=== PATIENT | male | born 1985 | race Caucasian/White ===

== ENCOUNTER 2016-11-12 17:11 | Emergency (ER) | payer SELFPAY ==
[~2016-11-12] VITALS: Ht 167.6 cm; Wt 71.2 kg
[~2016-11-12 17:11] MED LIST: BACL10TA PO; NO HOME MEDS
[2016-11-12 17:15] VITALS: Ht 167.6 cm; Wt 71.2 kg
--- OUTSIDE RECORDS SUMMARY | 2016-11-12 17:15 | XMS REPORT | Continuity of Care Document ---
Author Author [facility] Organization [facility] Address Unknown Phone Unavailable Care Team Providers Care Lab Animal Technician Name Role Phone PAVAN KELLY MD Primary Care Physician [phone] Insurance Providers Guarantor Yonatan Ordonez Address [address] [place] [address] Email [email or web address] Payer [facility] Community Plan Policy Number [id number] Subscriber's Name Yonatan Ordonez Relationship 18 Self Effective Date 16 Expiration Date 16 Advance Directives Directive Response Recorded Date/Time Advanced Directives Type None 03/27/16 2:06am Chief Complaint and Reason for Visit Chief Complaint Fall Reason for Visit [id number] Low back pain Problems Active Problems Medical Problem Onset Date Status Low back pain Unknown Acute Low back pain Unknown Acute Past Problems Medical Problem Onset Date Paraspinal muscle spasm Unknown Medications Current Home Medications Medication Dose Units Route Directions Days Qty Instructions Start Date Baclofen 10 Mg Tablet 10 Mg Oral Three Times A Day 30 Tablet No Home Meds 03/27/16 Past Home Medications Medication Directions Ordered Status Ciprofloxacin Hcl (Cipro) 500 Mg Tablet, 500 Mg Oral Twice A Day 02/02/12 Discontinued Hydrocodone Bit/Acetaminophen (Gordon 7.5/325 Tablet) 1 Tab Tablet, 1 - 2 Tab Oral As Needed 02/02/12 Discontinued Hydrocodone/Acetaminophen (Gordon 5-325 Tablet) 1 Each Tablet, 1 Tab Oral Every 4-6 Hours as needed for Pain 03/18/14 Discontinued Ibuprofen 200 Mg Tablet, 400 Mg Oral As Needed 03/17/09 Discontinued Ketorolac Tromethamine (Toradol) 10 Mg Tablet, 1 Tab Oral Q6h/0300,0900,1500, 2100 02/02/12 Discontinued Metronidazole (Flagyl) 500 Mg Powder, 500 Mg Miscell Twice A Day 02/02/12 Discontinued None , 02/09/09 Discontinued Social History Social History Problem Response Recorded Date/Time Onset Date Status Hx Substance Use No 03/27/2016 2:11am Not Applicable Not Applicable Hx Alcohol Use Yes 03/27/2016 2:11am Not Applicable Not Applicable Tobacco Usage smoke 03/25/2014 2:20am Not Applicable Not Applicable Query Response Start Date Stop Date Smoking Status Current every day smoker Hospital Discharge Instructions No hospital discharge instructions. Plan of Care Discharge Date 03/27/16 3:09am Disposition 01 DISCHARGED HOME, SELF-CARE Condition at Discharge Improved Instructions/Education Provided DI for Low Back Pain Prescriptions See Medication Section Referrals PAVAN KELLY MD Address: [address] [place] [address] GLORIA ORTIZ MD Address: [address] [place] [phone] Additional Instructions/Education Take Aleve 2 tablets twice daily for baseline pain control Baclofen 10 mg one tablet 3 times daily as needed for muscle pain/spasms Use warm packs or heat therapy to loosen the back muscles as well. Follow-up with Dr. Stafford at [facility] Care Plan and Goals Physician Care Plan Problem: Low back pain with paraspinal muscle spasms Goal: Follow up with primary care provider Instructions: Take medications and follow care plan as discussed/written Take Aleve 2 tablets twice daily for baseline pain control Baclofen 10 mg one tablet 3 times daily as needed for muscle pain/spasms Use warm packs or heat therapy to loosen the back muscles as well. Follow-up with Dr. Stafford at [facility] Functional Status No functional status results. Allergies, Adverse Reactions, Alerts Allergen Type Severity Reaction Status Last Updated Diazepam Allergy Severe ANAPHYLACTIC SHOCK Active 03/27/16 Immunizations Query Response on File Recorded Date/Time Hx Influenza Vaccination No 03/17/14 9:44pm Hx Pneumococcal Vaccination No 03/17/14 9:44pm Hx Tetanus, Diptheria, Pertussis Y 4-5 YRS, UNKNOWN 03/17/14 9:44pm Hx Influenza Vaccination No 03/17/14 9:44pm Hx Tetanus, Diptheria, Pertussis Y 4-5 YRS, UNKNOWN 03/17/14 9:44pm Tdap Vaccine Hx UNKNOWN,NO BROKEN SKIN 03/27/16 2:08am Vital Signs Acute Vital Signs Vital Response Date/Time Temperature (Fahrenheit) 98.4 deg F (96.8 - 99.1) 03/27/2016 3:09am Temperature (Calculated Celsius) 36.23923 degrees C (36.0 - 37.3) 03/27/2016 3:09am Pulse Rate (adult) 109 bpm (60 - 100) 03/27/2016 3:09am Respiratory Rate 19 breaths/min (10 - 20) 03/27/2016 3:09am O2 Sat by Pulse Oximetry 95 % (90 - 100) 03/27/2016 3:09am Blood Pressure 157/87 mm Hg 03/27/2016 3:09am Height (Feet) 5 feet 03/27/2016 2:06am Height (Inches) 5.00 inches 03/27/2016 2:06am Weight (Kilograms) 71.700 kg 03/27/2016 2:06am Body Mass Index (BMI) 26.0 03/27/2016 2:06am Results No known relevant diagnostic tests, laboratory data and/or discharge summary. Procedures No known history of procedures. Encounters Encounter Location Arrival/Admit Date Discharge/Depart Date Attending Provider Departed Emergency Room [facility] 03/27/16 1:56am 03/27/16 3: 09am PRAKASH LEONG MD Recent Diagnosis
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
--- OUTSIDE RECORDS SUMMARY | 2016-11-12 17:16 | XMS REPORT | Continuity of Care Document ---
Author Author [facility] Organization [facility] Address Unknown Phone Unavailable Support Name Relationship Address Phone TEO RHOADES DO Caregiver [facility] [address] [place] [phone] GLORIA ORTIZ MD Caregiver [address] [place] [address] LELA CHAND Next Of Kin [address] [place] [address] Unavailable Insurance Providers Payer Name Policy Number Subscriber Name Relationship Self Pay Yonatan Ordonez 18 Self Advance Directives Directive Response Recorded Date/Time Advanced Directives Type None 03/17/14 9:38pm Problems Medical Problems Problem Onset Date Status Low back pain Unknown Active Low back pain Unknown Active Medications Medication Dose Route Sig Days/Qty Instructions Order Date Discontinued Date Status [None] 02/09/09 01/30/12 Discontinued Ibuprofen 400 Mg PO NEEDED 03/17/09 01/30/12 Discontinued Hydrocodone Bit/Acetaminophen 1 - 2 Tab PO NEEDED 02/02/12 Discontinued Ketorolac Tromethamine 1 Tab PO Q6H/0300,0900,1500,2100 02/02/12 Discontinued Ciprofloxacin Hcl 500 Mg PO TWICE A DAY 02/02/12 08/01/12 Discontinued Metronidazole 500 Mg MC TWICE A DAY 02/02/12 08/01/12 Discontinued Hydrocodone/Acetaminophen 1 Tab PO EVERY 4-6 HOURS PRN PAIN 10 Qty 10/26 Active Social History Social History Problem Response Recorded Date/Time Smoking Status Current every day smoker 03/17/2014 9:44pm When did patient START smoking? 14 YEARS OLD 03/17/2014 9:44pm Hx Substance Use No 03/17/2014 9:44pm Hx Alcohol Use Yes 03/17/2014 9:44pm Query Response Start Date Stop Date Smoking Status Current every day smoker Hospital Discharge Instructions No hospital discharge instructions. Plan of Care No plan of care. Functional Status Query Response Date Recorded Physical Hygiene Self March 17, 2014 9:44pm Disabilities Visual March 17, 2014 9:44pm Devices Used Glasses March 17, 2014 9:44pm Dressing Self March 17, 2014 9:44pm Ambulation Self March 17, 2014 9:44pm Diet Self March 17, 2014 9:44pm Mental Status Alert Oriented March 17, 2014 9:44pm Disabilities Visual March 17, 2014 9:44pm Devices Used Glasses March 17, 2014 9:44pm Physical Hygiene Self March 17, 2014 9:44pm Dressing Self March 17, 2014 9:44pm Ambulation Self March 17, 2014 9:44pm Diet Self March 17, 2014 9:44pm Allergies, Adverse Reactions, Alerts Allergen Type Severity Reaction Status Last Updated Diazepam Allergy Severe ANAPHYLACTIC SHOCK Active 03/17/14 Immunizations Name Given Type Hx Influenza Vaccination No Historical Hx Pneumococcal Vaccination No Historical Hx Tetanus, Diptheria, Pertussis Y 4-5 YRS, UNKNOWN Historical Hx Influenza Vaccination No Historical Hx Tetanus, Diptheria, Pertussis Y 4-5 YRS, UNKNOWN Historical Vital Signs Acute Vital Signs Vital Response Date/Time Temperature (Fahrenheit) 98.6 deg F (96.8 - 99.1) Temperature (Calculated Celsius) 37.53408 degrees C (36.0 - 37.3) Pulse Rate (adult) 87 bpm (60 - 100) Respiratory Rate 16 breaths/min (10 - 20) O2 Sat by Pulse Oximetry 98 % (90 - 100) Blood Pressure 118/68 mm Hg Height 5 ft 5 in Weight 157 lb Body Mass Index 26.0 kg/m^2 Results Test Source Date Result Interp. Ref. Range Comments Alanine Aminotransferase (ALT/SGPT) March 17, 2014 10:32pm 34 U/L N 21-72 Albumin March 17, 2014 10:32pm 4.3 G/DL N 3.5-5.0 Albumin/Globulin Ratio March 17, 2014 10:32pm 1.5 RATIO N 1.1-2.2 Alcohol, Quantitative March 17, 2014 10:32pm 245 MG/DL - Alkaline Phosphatase March 17, 2014 10:32pm 85 U/L N 38-126 Amylase Level March 17, 2014 10:32pm 66 U/L N 30-110 Anion Gap March 17, 2014 10:32pm 14 MEQ/L N 5-15 Aspartate Amino Transf (AST/SGOT) March 17, 2014 10:32pm 26 U/L N 17 -59 BUN/Creatinine Ratio March 17, 2014 10:32pm 10 RATIO N 6-26 Band Neutrophils # September 11, 2012 5:30pm 0.1 T/MM3 - Band Neutrophils % September 11, 2012 5:30pm 1.0 % N 0-6 Basophils # (Auto) March 17, 2014 10:32pm 0.0 T/MM3 N 0-0.2 Basophils (%) (Auto) March 17, 2014 10:32pm 0.6 % N 0-2 Blood Urea Nitrogen March 17, 2014 10:32pm 9.0 MG/DL N 9-20 C-Reactive Protein January 30, 2012 11:20pm 13.5 MG/L H 0-9 COMMENT IN RECOVERY ROOM Calcium Level March 17, 2014 10:32pm 8.5 MG/DL N 8.4-10.2 Calculated Osmolality March 17, 2014 10:32pm 278 MOSM/KG N 261-280 Carbon Dioxide Level March 17, 2014 10:32pm 24 MEQ/L N 22-30 Chloride Level March 17, 2014 10:32pm 107 MEQ/L N 98-107 Conjugated Bilirubin September 11, 2012 5:30pm 0.00 MG/DL N 0.00-0.30 Creatinine March 17, 2014 10:32pm 0.9 MG/DL N 0.8-1.5 Eosinophils # (Auto) March 17, 2014 10:32pm 0.2 T/MM3 N 0-0.5 Eosinophils # (Manual) March 17, 2009 3:35pm 0.1 T/MM3 N 0-0.5 Eosinophils % (Manual) March 17, 2009 3:35pm 2.0 % N 0-4 Eosinophils (%) (Auto) March 17, 2014 10:32pm 2.7 % N 0-4 Erythrocyte Sedimentation Rate January 30, 2012 11:20pm 7 MM/HR N 0-15 COMMENT IN RECOVERY ROOM Gamma Glutamyl Transpeptidase December 02, 2007 5:15am 19 U/L N 15-73 Globulin March 17, 2014 10:32pm 2.8 G/DL N 2.4-3.6 Glucose Level March 17, 2014 10:32pm 97 MG/DL N 75-110 Hematocrit March 17, 2014 10:32pm 49.8 % N 41-53 Hemoglobin March 17, 2014 10:32pm 17.8 GM/DL H 13.5-17.5 Lipase March 17, 2014 10:32pm 178 U/L N 23-300 Lymphocytes # (Auto) March 17, 2014 10:32pm 3.1 T/MM3 N 1-4.8 Lymphocytes # (Manual) September 11, 2012 5:30pm 1.5 T/MM3 N 1-4.8 Lymphocytes % (Manual) September 11, 2012 5:30pm 23.0 % N 23-45 Lymphocytes (%) (Auto) March 17, 2014 10:32pm 43.2 % N 23-45 Mean Corpuscular Hemoglobin March 17, 2014 10:32pm 35.3 UUG H 26-34 Mean Corpuscular Hemoglobin Concent March 17, 2014 10:32pm 35.7 GM/DL N 31-37 Mean Corpuscular Volume March 17, 2014 10:32pm 98.8 UM3 N 80-100 Mean Platelet Volume March 17, 2014 10:32pm 9.1 UM3 L 9.4-12.4 Monocytes # (Auto) March 17, 2014 10:32pm 0.9 T/MM3 H 0-0.8 Monocytes # (Manual) September 11, 2012 5:30pm 0.8 T/MM3 N 0-0.8 Monocytes % (Manual) September 11, 2012 5:30pm 12.0 % H 0-9.0 Monocytes (%) (Auto) March 17, 2014 10:32pm 13.0 % H 0-9.0 Neutrophils # (Auto) March 17, 2014 10:32pm 2.9 T/MM3 N 1.8-7.7 Neutrophils # (Manual) September 11, 2012 5:30pm 4.0 T/MM3 N 1.8-7.7 Neutrophils % (Manual) September 11, 2012 5:30pm 61.0 % N 33-66 Neutrophils (%) (Auto) March 17, 2014 10:32pm 40.5 % N 33-66 Platelet Count March 17, 2014 10:32pm 230 T/MM3 N 130-400 Potassium Level March 17, 2014 10:32pm 4.0 MEQ/L N 3.6-5 RDW Standard Deviation March 17, 2014 10:32pm 44.6 FL N 36.9-50.2 Red Blood Count March 17, 2014 10:32pm 5.04 M/MM3 N 4.50-5.90 Sodium Level March 17, 2014 10:32pm 145 MEQ/L H 134-144 Tests Not Done March 17, 2009 3:55pm Not done - Has specimen been collected/obtained? Y Total Bilirubin March 17, 2014 10:32pm 0.80 MG/DL N 0.20-1.30 Total Protein March 17, 2014 10:32pm 7.1 G/DL N 6.3-8.2 Troponin I September 11, 2012 5:30pm < 0.012 ng/ml 0-0.12 Unconjugated Bilirubin September 11, 2012 5:30pm 0.70 MG/DL N 0.00-1.10 Urine Bilirubin March 17, 2014 10:42pm Negative - Has specimen been collected/obtained? Y Urine Blood March 17, 2014 10:42pm Negative - Has specimen been collected/obtained? Y Urine Collection Type March 17, 2014 10:42pm Voided-not cc-midstr - Has specimen been collected/obtained? Y Urine Color March 17, 2014 10:42pm Yellow - Has specimen been collected/obtained? Y Urine Glucose (UA) March 17, 2014 10:42pm Negative - Has specimen been collected/obtained? Y Urine Ketones March 17, 2014 10:42pm Negative - Has specimen been collected/obtained? Y Urine Leukocyte Esterase March 17, 2014 10:42pm Negative - Has specimen been collected/obtained? Y Urine Nitrite March 17, 2014 10:42pm Negative - Has specimen been collected/obtained? Y Urine Protein March 17, 2014 10:42pm Negative - Has specimen been collected/obtained? Y Urine RBC December 01, 2007 6:15am 5-10 /HPF - COMMENT ROOM 1Has specimen been collected/obtained? Y Urine Specific [place] March 17, 2014 10:42pm 1.010 L - Has specimen been collected/obtained? Y Urine Squamous Epithelial Cells December 01, 2007 6:15am Few - COMMENT ROOM 1Has specimen been collected/obtained? Y Urine Turbidity March 17, 2014 10:42pm Clear - Has specimen been collected/obtained? Y Urine Urobilinogen March 17, 2014 10:42pm 1.0 EU/DL - Has specimen been collected/obtained? Y Urine WBC December 01, 2007 6:15am 10-20 /HPF - COMMENT ROOM 1Has specimen been collected/obtained? Y Urine pH March 17, 2014 10:42pm 5.5 - Has specimen been collected /obtained? Y Vancomycin Level Trough February 12, 2012 9:17am 16.90 UG/ML N 15-20 White Blood Count March 17, 2014 10:32pm 7.2 T/MM3 N 4.5-11.0 Chemistry Specimen Hemolysis March 17, 2014 10:32pm < 15 0-25 0- 25: No Hemolysis.26-70: Slight Hemolysis - can falsely elevate K and Urine Protein. 71-285: Moderate Hemolysis - can falsely elevate K, Troponin I, CA 19-9, PTH, CSF GLucose, and Urine Protein, and can falsely decrease Phenytoin. 286-999: Gross Hemolysis - can falsely elevate K, Troponin I, CA 19-9, PTH, CSF Glucose, and Urine Protine, and can falsely decrease Phenytoin. Recommend specimen recollection. Urinalysis Comment March 17, 2014 10:42pm Microscopic not ind. - Has specimen been collected/obtained? Y Turbidity March 17, 2014 10:32pm < 20 0-20 Reactive Lymphocytes % September 11, 2012 5:30pm 3.0 % H 0-0 Glomerular Filtration Rate Calc March 17, 2014 10:32pm 99 - Reactive Lymphocytes # September 11, 2012 5:30pm 0.2 T/MM3 H 0-0 Immature Granulocyte # (Auto) March 17, 2014 10:32pm 0.00 T/MM3 N 0.00-0.03 Immature Granulocyte % (Auto) March 17, 2014 10:32pm 0.0 % N 0.0- 0.5 Icterus Index March 17, 2014 10:32pm < 2 0-7 Blood Culture Blood December 01, 2007 7:39am NO GROWTH AFTER 5 DAYS Urine Culture Urine, Clean Catch Voided December 01, 2007 6:53am Mixed Gram Positive Organisms Gram Stain Hand-Left January 30, 2012 9:58pm Fungal Culture Surgical Site-Left Hand January 30, 2012 9:58pm Procedures No known history of procedures. Encounters Encounter Location Date/Time Departed Emergency Room [facility] 03/17/14 8:50pm Recent Diagnosis
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
--- OUTSIDE RECORDS SUMMARY | 2016-11-12 19:38 | XMS REPORT | Continuity of Care Document ---
Author Author [facility] Organization [facility] Address Unknown Phone Unavailable Support Name Relationship Address Phone TEO RHOADES DO Caregiver [facility] [address] [place] [phone] GLORIA ORTIZ MD Caregiver [address] [place] [address] LELA CHAND Next Of Kin [address] [place] [address] Unavailable Insurance Providers Payer Name Policy Number [...] F (96.8 - 99.1) Temperature (Calculated Celsius) 37.45563 degrees C (36.0 - 37.3) Pulse Rate [...] 1Has specimen been collected/obtained? Y Urine Specific [place] March 17, 2014 10:42pm 1.010 L - [...] Encounters Encounter Location Date/Time Departed Emergency Room [facility] 03/17/14 8:50pm Recent Diagnosis
--- NOTE | 2016-11-12 20:12 | ERPDOC ---
Departure Disposition Decision Date: November 12, 2016 Disposition Decision Time: 20:08 Disposition: 01 DISCHARGED HOME, SELF-CARE Impression Impression Impression: Primary Impression: Contact dermatitis Contact dermatitis type: unspecified Contact dermatitis trigger: unspecified trigger Qualified Codes: L25.9 - Unspecified contact dermatitis, unspecified cause Severity: Moderate Condition: Improved Seen By: Physician only Referrals: PAVAN KELLY MD (PCP) 2 Days Patient Instructions: Contact Dermatitis (ED) Problems/Meds/Labs Reviewed?: Yes Medications reviewed and manag: Yes Follow up care ordered?: Yes Mental Status: Alert, Oriented Scripts Mupirocin (Bactroban) 15 Applic/15 G Cr 1 APPLIC TOP TID for 10 Days, #1 TUBE 0 Refills Prov: REX CORTEZ DO 11/12/16 Prednisone (Prednisone) 20 Mg Tablet 60 MG PO DAILY for 5 Days, #15 TAB 0 Refills Take daily each morning Prov: REX CORTEZ DO 11/12/16 Cephalexin (Keflex) 500 Mg Capsule 1 CAP PO TID for 10 Days, #30 CAP 0 Refills Prov: REX CORTEZ DO 11/12/16 HPI - Skin General General Chief Complaint: Skin Rash/Abscess Stated Complaint: RED AREAS ON ARMS Time Seen by Provider: 19:32 Source: patient Exam Limitations: no limitations HPI - Skin General Initial Comments 31-year-old male presents to the emergency department with a chief complaint of a rash on bilateral upper extremities. Patient noted onset of symptoms "a few days ago.". Patient states he noted the rash after working outside. Rash is over bilateral upper extremities. Patient notes that the rash is very itchy. He denies any true pain or discomfort other than the itching. No radiation. No other complaints or associated symptoms. Patient was at home when his symptoms began. Symptoms have been persistent in nature since onset. He does not note any exacerbating or remitting factors. Occurred At: home Onset: Gradual Allergies: Coded Allergies: diazepam (Verified Allergy, Severe, ANAPHYLACTIC SHOCK, 11/12/16) Past History Past Medical History Musculoskeletal: back pain Surgical History Denies Surgeries Joint: hand Family History Family History: Negative Vaccines Hx Influenza Vaccination: No Hx Pneumococcal Vaccination: No Hx Tetanus, Diptheria, Pertuss: Yes (4-5 YRS, UNKNOWN) Social History Smoking Status: Never smoker Does patient use chewing tobac: No Second Hand Exposure: No Substance Use Type: does not use Alcohol Intake: none Review of Systems Constitutional Constitutional: DENIES: chills, fever Eyes General: DENIES: erythema, exudate Lids/Accessories: DENIES: erythema, swelling Vision: DENIES: acuity, blurring ENMT Ears: DENIES: drainage, erythema Hearing: DENIES: hearing loss Balance: DENIES: ataxia, falling to one side Sinuses: DENIES: congestion, pain Nose: DENIES: nosebleeds, pain Mouth/Throat: DENIES: painful swallowing, sore throat Teeth: DENIES: pain Jaw: DENIES: pain Cardiovascular Cardiac: DENIES: chest pain, dyspnea on exertion Rhythm/Rate: DENIES: irregular beat, palpitations Vascular: DENIES: pedal edema, unilateral swelling Pulmonary Respiratory: DENIES: cough, dyspnea, pleuritic chest pain, sputum, tachypnea GI Upper Abdomen: DENIES: nausea, pain, vomiting Lower Abdomen: DENIES: diarrhea, pain General: DENIES: dysuria, frequency Musculoskeletal General: DENIES: joint pain, pain, tenderness Integumentary Skin: itching, rash Neurological General: DENIES: headache, numbness, weakness Psychiatric Psychiatric: DENIES: emotional instability, suicidal ideation/attempt Endocrine Endocrine: DENIES: polydipsia, polyphagia Hematologic/Lymphatic Hematologic/Lymphatic: DENIES: frequent nosebleeds, lymphadenopathy Allergic/Immunological Allergic/Immunoligical: DENIES: allergic reactions, hives Physical Exam General General Nourishment: well nourished, well developed, appears stated age, no acute distress, adult General Body Habitus: well groomed Vitals and Pain First Documented Vital Signs Date Time Temp Pulse Resp B/P Pulse Ox O2 Delivery O2 Flow Rate FiO2 11/12/16 17:15 97.8 108 20 180/99 98 Room Air Weight: Kilograms: 71.200 Height (feet): 5 Height (inches): 6.00 Triage Pain Scale: RN VS reviewed by Provider: Yes Normal Exams: Head: Normocephalic w/o trauma Eyes: Pupils are PERRLA w/ EOMI, No scleral icterus, irritation, or foreign bodies noted ENMT: No facial trauma, nasal exudates, pharyngeal erythema, or exudates are noted Dental: No fractured, loose, or missing teeth noted Neck: Full range of motion, without adenopathy, JVD, bruits or thyromegaly Chest/Resp: Clear all rock, with good airflow, and symmetry bilaterally CV: Regular rate and rhythm, without murmur or gallop, Pulses 2+ all extremities, capillary refill, <2 seconds all ext., no pedal edema noted Abdomen: Bowel sounds positive, soft, non-tender, non-distended, no hepatosplenomegaly, masses or bruits noted Lymphatic: No lymphadenopathy, or lymphedema noted Musculoskeletal: No tenderness, or deformity noted, good range of motion, all extremities Integumentary: hives, or bruising noted, hair and nails, without abnormality Neurologic: Patient is alert, and oriented, cranial nerves, motor/sensory/ cerebellar, exams w/o gross deficits, to observation Psychiatric: Patient exhibits, appropriate attention, emotion and affect Integumentary (brief) Comments Over the flexor surface of bilateral upper extremities there is a maculopapular erythematous rash consistent with contact dermatitis. Multiple excoriations are present. Rash blanches with pressure. There is no sign of secondary infection. Differential Diagnoses Considering: Abrasion, Abscess, Contact Dermatitis, Eczema, Hives/Urticaria Progress Results/Orders Orders Procedure Category Date Status Time Prednisone PHA 11/12/16 Complete (Prednisone) 20:15 Cephalexin Capsule PHA 11/12/16 Complete (Keflex) 20:15 Medications Current ED Medications Prednisone (PredniSONE) 50 mg O ONCE PO Last administered on 11/12/16 20:32; Start 11/12/16 at 20:15; Stop 11/12/16 at 20:16; Status DC Cephalexin HCl (Keflex) 500 mg O ONCE PO Last administered on 11/12/16 20:32; Start 11/12/16 at 20:15; Stop 11/12/16 at 20:16; Status DC Progress Progress Patient has had an anaphylactic reaction in the past secondary to medication. Patient requests to take only an antibiotic that he has had in the past. Patient is recommended Bactrim or clindamycin which he declines in favor of Keflex. Patient is given Keflex 500 mg by mouth 1 in the emergency Department. Patient is given prednisone 50 mg by mouth 1 in the emergency department with improvement of symptoms. Patient is discharged home in improved condition. Patient is to follow up as instructed. Patient is to return to the emergency Department if his condition worsens or changes in any manner. Patient is in agreement with the current plan of management. Prescription for Keflex, prednisone, and Bactroban ointment were provided. Patient was noted to have elevated blood pressure with which he is asymptomatic in the emergency Department. Patient is offered evaluation and treatment of the hypertension which he declines. Patient will follow up with his primary care physician for elevated blood pressure. REX CORTEZ DO November 12, 2016 20:11
[2016-11-12] MEDS ORDERED: CEPH-583 PO (20:13)
[2016-11-12] MEDS ORDERED: MUPI15CR TOP (20:13)
[2016-11-12] MEDS ORDERED: PRED20TA PO (20:13)
[2016-11-12] MEDS ORDERED: CEPHALEXIN 500 MG CAPSULE PO ONE (20:15)
[2016-11-12] MEDS ORDERED: PredniSONE 10 MG TABLET PO ONE (20:15)
--- NOTE | 2016-11-12 20:20 | NUR ---
PROVIDER DR. CORTEZ AT BEDSIDE TO SPEAK WITH PT.
--- NOTE | 2016-11-12 20:23 | NUR ---
Note britt in EDM - 11/12/16 at 2102 by KAYDEN DISCHARGE WRITTEN INSTRUCTIONS WITH KEFLEX, BACTROBAN, AND PREDNISONE RX REVIEWED AND SENT WITH PT. PT VERBALIZES UNDERSTANDING OF DI AND MEDICATIONS, DENIES QUESTIONS. PT AMBULATES OUT OF ER WITH STEADY GAIT ACCOMP BY SPOUSE AT THIS TIME.
--- NOTE | 2016-11-12 20:35 | NUR ---
BP READS 141/104 AND 163/109. PT ASYMPTOMATIC, REPORTS FEELING AGITATED AND ANXIOUS TO GO HOME. PROVIDER NOTIFIED.
[2016-11-12 20:47] VITALS: BP 150/107; PULSE 95; RESP 20; TEMP 97.8; O2SAT 99
--- NOTE | 2016-11-12 20:47 | NUR ---
DISCHARGE WRITTEN INSTRUCTIONS WITH KEFLEX, BACTROBAN, AND PREDNISONE RX REVIEWED AND SENT WITH PT. PT VERBALIZES UNDERSTANDING OF DI AND MEDICATIONS, DENIES QUESTIONS. PT AMBULATES OUT OF ER WITH STEADY GAIT ACCOMP BY SPOUSE AT THIS TIME.
== END 2016-11-12 20:47 | disposition home or self-care (01) ==
LOC: ED 17:11
DX: L25.9 Unspecified contact dermatitis, unspecified cause (principal)